=== PATIENT | male | born 1995 | race Caucasian/White ===

== ENCOUNTER 2020-07-17 08:36 | Day surgery (SDC) | payer OTHER, SELFPAY ==
[2020-07-17] VITALS (7 sets, daily range): BP systolic 120–132; BP diastolic 75–91; PULSE 65–83; RESP 16–18; TEMP 36.3–37.4; O2SAT 96–100; BMI 20.7
[2020-07-17] MEDS: Lactated Ringers 1,000 ML 100 ML IV (09:24)
--- NOTE | 2020-07-17 11:18 | PCM.HP.STD ---
Problem List (1) Urethral stricture Status: Acute History of Present Illness Date of Admission: 07/17/20 Chief Complaint: Urethral stricture The patient is a 25 year old male who is having a difficult slow flow on cystoscopy was found to have a dense urethral stricture short in length in the bulbar urethra. Past Medical History Allergies lactose Adverse Reaction (Verified 07/17/20 08:59) Upset Stomach duck eggs Adverse Reaction (Uncoded 07/17/20 08:59) Vomiting turkey eggs Adverse Reaction (Uncoded 07/17/20 08:59) Vomiting Home Medications: Ambulatory Orders Medication Instructions Recorded NK 07/10/20 Surgical History: no surgical history Smoking Status: Never smoker Tobacco Use: Non-smoker Review of Systems Constitutional: Denies: Chills, Fever, Weight Change HEENT: Denies: Head Aches, Sinus Congestion, Sinus Drainage Cardiovascular: Denies: Chest Pain, Palpitations Respiratory: Denies: Cough, Shortness of breath at rest, Sputum production Gastrointestinal: Denies: Abdominal Pain, Nausea, Vomiting Genitourinary: Denies: Dysuria Musculoskeletal: Denies: Joint Pain, Joint Tenderness Skin: Denies: Rash, Wounds Neurological: Denies: Numbness, Tingling, Focal weakness Psychiatric: Denies: Anxiety, Depression, Homicidal Ideations, Suicidal Ideations Hematologic/ Lymphatic: Denies: Easy Bruising, Easy Bleeding VTE Information - Inpt Only VTE Present on Admission: No - Physical Exam Vitals/I&O's: Vital Signs Temp Pulse Resp BP Pulse Ox 98.3 F 83 16 132/91 H 96 07/17/20 09:19 07/17/20 09:19 07/17/20 09:19 07/17/20 09:19 07/17/20 09:19 Oxygen Delivery Method Room Air Weight: 73.4 kg Body Mass Index (BMI) 20.7 General: Alert, Oriented x3, Cooperative HEENT: Atraumatic, PERRLA, EOMI, Normocephalic Neck: Supple, No JVD, Negative Carotid Bruits Lungs: Clear to auscultation, Normal air movement Cardiovascular: Regular rate, No murmurs Abdomen: Bowel Sounds Present, Soft, Non Tender Extremities: No edema, Capillary Refill Less than 3 Seconds Skin: No rashes, No breakdown Musculoskeletal: No Tenderness to Palpation of Joints or Extremities Neurological: Cranial nerves II-XII grossly intact Psych/Mental Status: Normal Affect, Appropriate Microbiology Past 72 Hours 07/16/20 08:45 Interface Orders SARS-CoV-2 Antigen (Rapid) - Final Current Medications Lactated Ringer's () 1,000 mls @ 100 mls/hr IV .Q10H ANGELA Last Admin: 07/17/20 09:24 Dose: 100 mls/hr Documented by: Assessment/Plan All Active Problems Urethral stricture (Acute) 25-year-old male with urethral stricture plan to proceed with a DVIU and Grimaldo placement.
--- NOTE | 2020-07-17 11:20 | DCINST_ITS ---
Discharge Diet: Light diet - advance as tolerated Discharge Activity: Return to Normal Activity Call your doctor if your incision/area has: Continuous Slow Oozing, Sudden Increased Bleeding Call your doctor if you observe: Fever of 101 or Higher Suture Line Care: Avoid Pulling/Pushing, Avoid Pinching/Bending Catheter: Grimaldo to leg bag, Grimaldo to large bag Drain: Elton Allergies/Adverse Reactions: Allergies lactose Adverse Reaction (Verified 07/17/20 08:59) Upset Stomach duck eggs Adverse Reaction (Uncoded 07/17/20 08:59) Vomiting turkey eggs Adverse Reaction (Uncoded 07/17/20 08:59) Vomiting Medications to take at Discharge Ciprofloxacin [Cipro] 500 mg PO BID #14 tab 07/17/20 Hydrocodone Bitart/Apap 5-325 [Fernley 5MG-325MG] 1 tablet PO Q4H PRN PRN 7 Days #10 tablet 07/17/20 The following prescriptions were given: Ciprofloxacin [Cipro] 500 mg PO BID #14 tab Transmission Status: Pending to [facility] Hydrocodone Bitart/Apap 5-325 [Fernley 5MG-325MG] 1 tablet PO Q4H PRN PRN 7 Days #10 tablet PRN Reason: Pain Transmission Status: Sent to [facility] Primary Care Physician: Care Physician,No Primary [Primary Care Provider] - Test Results: Test results from this visit will be discussed in further detail at your follow- up appointment, if applicable. Please Follow Up With: Artur Nelson MD When: in 2 weeks, please call to make an appointment.
[2020-07-17] MEDS: Cefazolin 2 GM in 0.9% Normal Saline 100 ML IV (12:53)
--- NOTE | 2020-07-17 13:08 | OP.PCM_ITS ---
Problem List (1) Urethral stricture Status: Acute Qualifiers: Urethral stricture type: other stricture Urethral stricture sex-location: male urethra-bulbous Qualified Code(s): N35.812 - Other urethral bulbous stricture, male Report of Operation Date of Procedure: 07/17/20 Pre-Operative Diagnosis: Dense bulbar urethral stricture Post-Operative Diagnosis: Same Surgery/Procedure Performed:: Cystoscopy and DVIU Description of Surgical Findings:: Patient was seen in the preoperative area and we discussed the surgery today. The patient has a urethral stricture in the mid urethra and working to proceed with a direct vision internal urethrotomy. Patient understands that it is possible that the scar tissue may come back and that the success rate of this procedures in the long-term is about 60 to 70%. We talked about the possibility of bleeding or infection from the procedure. The patient also understands that a catheter will be necessary after the procedure for about 10 days depending on the situation. After long discussion with the patient in preoperative area describing the procedure and what the patient's expect afterwards, the patient's questions were addressed and working to proceed with the surgery, the consent form was signed. The patient was taken back to the operating room after induction of anesthesia was placed in dorsolithotomy position. The genitals and urethra are prepped and draped in the usual sterile fashion. Then using a DVIU set the meatus was gently dilated from 18-20 Japanese. Then went into the urethra with a urethrotome and identified the pinpoint stricture dense stricture in the Bulbar urethra lesss 2cm in length. A 0.038 Glidewire was used to passed through the stricture to ensure access to the bladder and the prostate. The Glidewire was secured to the drapes. Then using a cold knife the knife was deployed from the urethrotome and then at the 12 o'clock position the scar tissue was cut until the stricture was cut open completely. I was then able to navigate the scope through the scar tissue without any resistance. Then after this I was able to navigate past the dense scar tissue into the bulbar urethra through the sphincter and passed the prostate. Inside the bladder the bladder and prostate was inspected the trigone was normal the left and right ureter orifice normal the prostate was normal. I then pulled out the urethrotome and then a well-lubricated 18 Japanese catheter was advanced into the bladder with clear return of urine. 10 cc were put into the balloon and the catheter was secured to the leg bag. Type of Anesthesia:: General Drains: 18 fr vazquez - Admit VTE Documentation VTE Present on Admission: No VTE Mechan Device Prophylaxis: SCD's
== END 2020-07-17 15:24 | disposition home or self-care (01) ==
LOC: SDC 08:45 → AC 08:48
PROVIDERS: Referring Provider Urology; Visit Provider Urology
PROC: 0T7D8ZZ Dilation of Urethra, Via Natural or Artificial Opening Endoscopic (ICD-10-PCS; CPT 52276; principal; 2020-07-17 11:45)
DX: N35.912 Unspecified bulbous urethral stricture, male (principal)
CPT/HCPCS: 00910; 52276; 87426; C9803; J7120; C1769; J2405

== ENCOUNTER 2020-09-27 16:24 | Outpatient (RCR) | payer OTHER, SELFPAY ==
[2020-07-17 09:19] VITALS: BMI 20.7
== END 2020-12-03 23:59 ==
LOC: IMMUN 16:24
PROVIDERS: Visit Provider Family Medicine
DX: Z23 Encounter for immunization (principal)
CPT/HCPCS: 0001A; 0002A; 91300

== ENCOUNTER → 2022-09-22 | Outpatient (CLI) | payer OTHER, SELFPAY ==
[2022-09-22 18:11] LABS: Absolute Lymphocyte Count 1.87 X10^3/uL (0.83-4.51); Absolute Neutrophil Count 1.8 X10^3/uL (2.0-7.7); Basophil# 0.04 X10^3/uL; Eosinophil# 0.06 X10^3/uL; Eosinophils% 1.5 % (0-5); Hematocrit 42.1 % (40-54); Hemoglobin 14.2 g/dL (13.0-16.5); Lymphocyte # 1.87 X10^3/ul (0.83-4.51); Lymphocyte % 45.9 % (19-41); Mean Corp Hgb Conc 33.7 g/dL (32-36); Mean Corpuscular Hgb 30.8 pg (27.0-32.0); Mean Corpuscular Volume 91.3 fL (80-94); Mean Platelet Vol. 9.3 fl (6.2-12.0); Monocyte# 0.33 X10^3/uL; Monocyte% 8.1 % (0-10); NRBC Flagged by Analyzer 0 % (0-5); Neutrophil # 1.76 X10^3/uL (2.7-7.7); Neutrophil % 43.3 % (47-70); Platelet Count 263 K/mm3 (150-450); RBC Distribution Width CV 11.4 % (11.6-14.6); RBC Distribution Width SD 38.2 fl (35.1-43.9); Red Blood Count 4.61 M/mm3 (4.6-6.2); White Blood Count 4.1 K/mm3 (4.4-11.0)
[2022-09-22 18:25] LABS: ALB/GLOB Ratio 1.1 RATIO (0.9-2.4); AST(SGOT) 36 U/L (15-37); Alanine Aminotransfer ALT/SGPT 30 U/L (16-61); Albumin, Serum 4.2 g/dL (3.2-5.0); Alkaline Phosphatase 79 U/L (45-117); Anion Gap 5 (5-15); BUN 6 mg/dL (7-18); BUN/Creat Ratio 6.3 RATIO (10-20); Calcium,Total 9.2 mg/dL (8.5-10.1); Chloride 106 mmol/L (98-107); Creatinine, Serum 0.95 mg/dL (0.70-1.30); EST Glomerular Filtration Rate 99 mL/min (>60); Est Glom Filt Rate - Afr Amer 120 mL/min (>60); Globulin 3.8 g/dL (2.2-4.2); Glucose 94 mg/dL (74-106); Potassium 3.7 mmol/L (3.5-5.1); Sodium Level 139 mmol/L (136-145); Thyroid Stim Hormone (TSH) 1.17 uIU/mL (0.358-3.74)
== END | disposition home or self-care (01) ==
LOC: MTLAB 15:28
PROVIDERS: PCP Family Medicine; Referring Provider Family Medicine; Visit Provider Family Medicine
DX: R10.9 Unspecified abdominal pain (principal)
CPT/HCPCS: 36415; 80053; 84443; 85025

== ENCOUNTER → 2022-09-25 | Outpatient (CLI) | payer OTHER, SELFPAY ==
--- NOTE | 2022-09-25 17:50 | US_ITS ---
EXAM: US SOFT TISSUES HEAD AND NECK, THYROID CLINICAL INDICATION: NODULE TECHNIQUE: Greyscale and color doppler imaging was performed of the thyroid gland. This report was created using [employer] report [employer] [place] technology. COMPARISON: None. FINDINGS: LEFT THYROID LOBE: 5.4 x 1.5 x 1.8 cm, with homogeneous echotexture and no nodules identified. RIGHT THYROID LOBE: 6.2 x 1.5 x 1.9 cm, with homogeneous echotexture and no nodules identified. ISTHMUS: Unremarkable. No thyroid nodules are present. US/Thyroid IMPRESSION: Normal sonographic appearance of the thyroid gland with no nodules identified. Electronically Signed: Sahil Daigle MD at 3:29 EDT ,
== END | disposition home or self-care (01) ==
LOC: US 17:47
PROVIDERS: PCP Family Medicine; Visit Provider Family Medicine
DX: E04.1 Nontoxic single thyroid nodule (principal)
CPT/HCPCS: 76536

== ENCOUNTER → 2023-02-24 | Outpatient (CLI) | payer OTHER, SELFPAY ==
--- NOTE | 2023-02-24 16:30 | RAD_ITS ---
EXAM: XR ABDOMEN, 2 VIEWS CLINICAL INDICATION: ABD BLOATING,CONSTIPATION TECHNIQUE: Frontal view of the abdomen/pelvis with upright view of the abdomen. COMPARISON: No relevant prior studies available. FINDINGS: LOWER THORAX: No acute pathology. INTRAPERITONEAL SPACE: No free air. GASTROINTESTINAL TRACT: There is moderate stool seen within the proximal and distal colon which may represent early constipation. Non-obstructive. No bowel or stomach distention. ORGANS: Unremarkable as visualized. No organomegaly. No abnormal calcifications. BONES/JOINTS: No acute pathology. SOFT TISSUES: No acute pathology. RAD/Abd Inc Decub and/or Erect IMPRESSION: Moderate stool within the ascending and sigmoid colon which may represent early constipation. Electronically Signed: Nadir Lyman MD at 19:55 EDT ,
== END | disposition home or self-care (01) ==
PROVIDERS: PCP Family Medicine; Referring Provider Internal Medicine Gastroenterology; Visit Provider Internal Medicine Gastroenterology
DX: R14.0 Abdominal distension (gaseous) (principal); K59.00 Constipation, unspecified
CPT/HCPCS: 74019

== ENCOUNTER 2023-06-11 16:27 | Emergency (ER) | payer OTHER, SELFPAY ==
[2023-06-11 16:28] VITALS: BP 148/97; PULSE 98; RESP 14; TEMP 36.8; O2SAT 99; BMI 44.1
--- NOTE | 2023-06-11 16:38 | EX.ED.UPPERE ---
HPI History of Present Illness Chief Complaint: Laceration Detail of Chief Complaint: Left hand laceration Informant: patient Narrative Narrative: Patient presents to the emergency department with complaint of lacerating his left hand. Patient states that he was working with a woodworking tool and kind of pushed towards his left hand and lacerated the webspace between his thumb and index finger. Patient up-to-date on tetanus. He is right-hand dominant. PFSH PFSH Home Medications NK 06/11/23 [History Last Taken Unknown] Allergy/AdvReac Type Severity Reaction Status Date / Time egg AdvReac Vomiting Verified 06/11/23 16:28 lactose AdvReac Upset Verified 06/11/23 16:28 Stomach Social History Smoking Status: Never smoker ROS ROS ED Review of Systems ROS Unobtainable: other Constitutional Constitutional ED: Reports lethargy; Denies chills, fever(s), sweats or weight loss Eyes Eyes: Denies blurry vision, change in vision or diplopia ENT ENT ED: Denies rhinorrhea or sore throat Cardiovascular Cardiovascular: Denies chest pain, orthopnea or racing heartbeat Respiratory/Chest Respiratory/Chest: Denies cough, dyspnea, dyspnea on exertion, orthopnea or sputum Gastrointestinal Gastrointestinal: Denies abdominal pain, diarrhea, nausea or vomiting Genitourinary Genitourinary ED: Denies dysuria, hematuria or urinary frequency Musculoskeletal Musculoskeletal: Reports other Details: Left hand laceration ; Denies arthralgias, back pain, myalgias or neck pain Integumentary Denies abscess, Abrasions or rash Neurologic Neurologic: Denies headache(s) or weakness Psychiatric Psychiatric: Denies anxiety, depression or suicidal thoughts Endocrine Endocrinology: Denies polydipsia, polyphagia or polyuria Hematologic/Lymphatic Hematologic/Lymphatic: Denies easy bleeding, easy bruising or lymphadenopathy Allergic/Immunologic Allergic/Immunologic ED: Denies mouth swelling, tongue swelling or urticaria EXAM Physical Exam Const Vital Signs: 06/11/23 16:28 Temperature 98.3 F Temperature Source Temporal Pulse Rate 98 Respiratory Rate 14 Blood Pressure 148/97 H Blood Pressure Mean 114 Pulse Ox 99 Oxygen Delivery Method Room Air Positive well nourished and well developed General Appearance ED: well developed and NAD HEENT Reports TM's clear and moist mucous membranes normocephalic and atraumatic; Negative for trauma or tenderness Tympanic Membrane ED: Yes TM's clear Eyes PERRL and EOMs intact bilaterally General Eye ED: Negative for pale conjunctiva or scleral icterus Neck no lymphadenopathy, supple and no JVD General: Negative for tenderness Chest Wall inspection of chest normal and palpation of chest normal Chest: Negative for tenderness Resp normal respiratory effort and clear to auscultation bilaterally Effort and Inspection: Negative for respiratory distress or pain with movement Auscultation: Negative for rhonchi, wheezes or diminished lung sounds Cardio regular rate, regular rhythm, S1 normal heart sound, S2 normal heart sound and no murmurs Peripheral Pulses: pulses 2+ throughout GI normal to inspection, nondistended, normoactive bowel sounds, soft to palpation, non-tender, non-distended and no masses Back/Spine no CVA tenderness and no thoracic nor lumbar tenderness Extremity Extremity Narrative: -Patient has a 2 cm laceration in the webspace between his thumb and index finger. He has normal range of motion of all digits. Normal sensation. Normal cap refill and strength. General Extremety ED: Negative for edema General Extremity: Negative for edema Neuro oriented x3, CN's II-XII intact bilaterally, no sensory deficits noted and gait normal Sensorium / Orientation: awake, alert, oriented to person, oriented to place and oriented to time Motor Exam: strength 5/5 throughout and strength abnormal Psych mental status grossly normal Skin no rashes or lesions noted and no wounds MDM MDM MDM Narrative Medical decision making narrative: Patient presents with laceration to his left hand. Recommended suture repair. He was working with wood and this was the first pass to use with a tool did not think it was grossly contaminated. On exam I do not appreciate any foreign bodies within the wound. Please see procedure note for wound repair. Patient advised to follow-up with primary care physician in 10 days for suture removal. Patient to return if increasing pain, redness, swelling, purulent drainage, or condition should worsen anyway. Procedures Lacerations Left hand laceration: Length: 0.79 in Depth: Muscle Prep: Sterile Conditions and Shure-Clens Laceration repair: Irrigated, Lidocaine and Local Irrigated (ml): 100 Number of Sutures/Cony: 3 Suture Information: Ethilon, Simple and 4-0 Discharge Plan Triage Chief Complaint: Laceration ED Provider: Liseth Stover Dx/Rx/DC Orders Clinical Impression: Laceration of hand, left Instructions: ED Laceration, Hand: All Closures Prescriptions: No Action NK Primary Care Provider: Kell Lane Referrals: Kell Lane, DO [Primary Care Provider] - 10 Day for suture removal Disposition Disposition: Home, Self Care Discharge Date/Time: 06/11/23 17:19
== END 2023-06-11 17:19 | disposition home or self-care (01) ==
LOC: ED 17:06
PROVIDERS: Emergency Provider Emergency Medicine; PCP Family Medicine; Visit Provider Emergency Medicine
DX: S61.412A Laceration without foreign body of left hand, initial encounter (principal); W31.2XXA Contact with powered woodworking and forming machines, initial encounter
CPT/HCPCS: 12001; 99284

== ENCOUNTER → 2024-12-14 | Outpatient (CLI) | payer OTHER, SELFPAY ==
[2024-12-14 10:24] LABS: Absolute Lymphocyte Count 2.32 X10^3/uL (0.83-4.51); Absolute Neutrophil Count 1.7 X10^3/uL (2.0-7.7); Basophil# 0.06 X10^3/uL; Basophil% 1.3 % (0-1); Eosinophil# 0.09 X10^3/uL; Hematocrit 41.5 % (40-54); Lymphocyte # 2.32 X10^3/ul (0.83-4.51); Lymphocyte % 51.8 % (19-41); Mean Corp Hgb Conc 33.7 g/dL (32-36); Mean Corpuscular Hgb 30.3 pg (27.0-32.0); Mean Corpuscular Volume 89.8 fL (80-94); Mean Platelet Vol. 9.5 fl (6.2-12.0); Monocyte# 0.36 X10^3/uL; NRBC Flagged by Analyzer 0 % (0-5); Neutrophil # 1.65 X10^3/uL (2.7-7.7); Neutrophil % 36.9 % (47-70); Platelet Count 234 K/mm3 (150-450); RBC Distribution Width CV 11.9 % (11.6-14.6); RBC Distribution Width SD 38.8 fl (35.1-43.9); Red Blood Count 4.62 M/mm3 (4.6-6.2); White Blood Count 4.5 K/mm3 (4.4-11.0)
[2024-12-14 10:42] LABS: ALB/GLOB Ratio 1.4 RATIO (0.9-2.4); AST(SGOT) 21 U/L (<=37); Alanine Aminotransfer ALT/SGPT 19 U/L (<=46); Albumin, Serum 4.4 g/dL (3.5-5.0); Alkaline Phosphatase 84 U/L (40-129); Anion Gap 10 (5-15); BUN 8 mg/dL (4-19); BUN/Creat Ratio 7.5 RATIO (10-20); Calcium,Total 9.3 mg/dL (7.6-11.0); Carbon Dioxide 24.8 mmol/L (21.0-32.0); Chloride 104 mmol/L (98-108); Cholesterol 193 mg/dL (<=200); Creatinine, Serum 1.12 mg/dL (0.70-1.20); EST Glomerular Filtration Rate 90 (>60); Globulin 3.2 g/dL (2.2-4.2); Glucose 97 mg/dL (70-99); High Density Lipoprotein 47 mg/dL; Low Density Lipoprotein Calc. 129 mg/dL; Potassium 4.2 mmol/L (3.3-5.1); Protein, Total 7.6 g/dL (5.9-8.4); Sodium Level 138 mmol/L (133-145); Total Bilirubin 0.57 mg/dL (0.00-1.30); Triglycerides 86 mg/dL; Very Low Density Lipoprotein 17 mg/dL (5-40); cholesterol:hdl ratio screen 4.12
== END | disposition home or self-care (01) ==
PROVIDERS: PCP Family Medicine; Referring Provider Family Medicine; Visit Provider Family Medicine
DX: Z13.1 Encounter for screening for diabetes mellitus (principal); Z13.220 Encounter for screening for lipoid disorders
CPT/HCPCS: 36415; 80053; 80061; 85025

== ENCOUNTER 2025-03-17 18:10 | Emergency (ER) | payer OTHER, SELFPAY ==
[2025-03-17 18:11] VITALS: BP 159/109; PULSE 75; RESP 16; TEMP 36.7; O2SAT 100; BMI 25.5
[2025-03-17 18:34] VITALS: O2SAT 100
--- NOTE | 2025-03-17 18:34 | RAD_ITS ---
PROCEDURE: CHEST 1 VIEW (PORTABLE) 03/17/2025 REASON FOR EXAM: CHEST PAIN TECHNIQUE: Frontal view of the chest. COMPARISON: None FINDINGS: Lungs: The lungs are symmetrically expanded. Lung volumes are pronounced, most likely secondary to vigorous inspiratory effort. There is no consolidation. There is no peribronchial thickening. There is no pulmonary vascular redistribution. Pleura: No significant pleural effusion seen. There is no evidence of pneumothorax. Mediastinum: There is no mediastinal widening or mediastinal shift. Heart: The cardiac silhouette is not enlarged. Laxmi: The pulmonary laxmi are not enlarged or retracted. Osseous: No acute fracture is seen. RAD/Chest 1 View (Portable) IMPRESSION: No radiographic evidence of an acute abnormality in the chest. Findings discussed above in detail. Reading Location: [id number]
--- NOTE | 2025-03-17 18:34 | EKG12_ITS ---
Test Reason : DYSRHYTHMIA Blood Pressure : */* mmHG Vent. Rate : 73 BPM Atrial Rate : 73 BPM P-R Int : 172 ms QRS Dur : 90 ms QT Int : 378 ms P-R-T Axes : 68 40 36 degrees QTcB Int : 416 ms Normal sinus rhythm Normal ECG Confirmed by HEMA FISHER, MANDY ([id number]), greeting card editor LIVIER BLUE ([id number]) on 03/19/2025 8:29:21 AM Referred By: Confirmed By: MANDY GARRIDO MD
--- OUTSIDE RECORDS SUMMARY | 2025-03-17 18:51 | XMS RPT_ITS | CCD ---
Author Organization [facility] Care Team Providers Care Disk Recordist Name Role Phone JAYJAY GRAY Admitting Unavailable JAYJAY GRAY Attending Unavailable BUCIO, NIDIA A Referring Unavailable JAYJAY GRAY M Primary Care Unavailable BUCIO, NIDIA A Consulting Unavailable PROVIDER, UNKNOWN Consulting Unavailable PROVIDER, UNKNOWN Consulting Unavailable PROVIDER, UNKNOWN Consulting Unavailable BUCIO, NIDIA A Referring Unavailable ISRA TARIQ Admitting Unavailable TARIQISRA Monsalve Attending Unavailable ISRA TARIQ Primary Care Unavailable BUCIO, NIDIA A Consulting Unavailable PROVIDER, UNKNOWN Consulting Unavailable PROVIDER, UNKNOWN Consulting Unavailable PROVIDER, UNKNOWN Consulting Unavailable FÉLIX BEARD Admitting Unavailable FÉLIX BEARD Attending Unavailable FÉLIX BEARD Primary Care Unavailable BUCIO, NIDIA A Consulting Unavailable PROVIDER, UNKNOWN Consulting Unavailable PROVIDER, UNKNOWN Consulting Unavailable PROVIDER, UNKNOWN Consulting Unavailable FÉLIX BEARD Admitting Unavailable FÉLIX BEARD Attending Unavailable FÉLIX BEARD Primary Care Unavailable BUCIO, NIDIA A Consulting Unavailable PROVIDER, UNKNOWN Consulting Unavailable PROVIDER, UNKNOWN Consulting Unavailable PROVIDER, UNKNOWN Consulting Unavailable Italo Kenney MD Primary Care Provider [phone] Italo Kenney MD Attending Provider [phone] Italo Kenney MD Referring Provider [phone] Italo Kenney Referring Unavailable Italo Kenney Attending Unavailable Italo Kenney Primary Care Unavailable Allergies Allergy Classification Reported Allergen(s) Allergy Type Date of Onset Reaction(s) Facility (5 sources) egg extract Drug Allergy 01-12-2022 Vomiting [facility] Comment on above: DUCK AND TURKEY EGGS ONLY (5 sources) Lactose Drug Allergy 07-17-2020 Upset Stomach [facility] (1 source) egg extract Drug Allergy 06-11-2023 [facility] Repository (1 source) Lactose Drug Allergy 06-11-2023 [facility] Repository Medications Current Medications Medication Drug Class(es) Dates Sig (Normalized) Sig (Original) [place] (Nk) (2 sources) Start: 06-11-2023 [place] (Nk) A ctive June 11, 2023 1:00am Start: 06-11-2023 [place] (Nk) A ctive June 11, 2023 12:00am Completed/Discontinued Medications Medication Drug Class(es) Dates Sig (Normalized) Sig (Original) acetaminophen 325 mg / HYDROcodone bitartrate 5 mg oral tablet (5 sources) Opioid Agonist Start: 07-17-2020 End: 07-24-2020 Hydrocodone-Acetami nophen 1 TABLET tablet Discontinued 1 {tbl} PO EVERY 4 HOURS NEEDED as needed for Pain 10 7 0 July 17, 2020 July 23, 2020 1:00am July 24, 2020 1:03am Contusion of urethra, initial encounter Start: 07-17-2020 End: 07-24-2020 take 1 tablet by mouth every four hours as needed Hydrocodone-Acetaminophen Discontinued 1 TABLET PO EVERY 4 HOURS NEEDED 10 7 July 17, 2020 July 24, 2020 12:03am ciprofloxacin 500 mg oral tablet (5 sources) Quinolone Antimicrobial Start: 07-17-2020 End: 06-11-2023 take 1 tablet by mouth twice daily Ciprofloxacin Hcl 500 MG tablet Discontinued 500 mg PO TWICE A DAY 14 0 July 17, 2020 1:00am June 11, 2023 5:41pm Problems Problem Classification Problem Date Documented Da te Episodic/Chronic External cause codes: Natural/environment (1 source) Bitten by dog, initial encounter; Translations: [Bitten by dog, initial encounter] Onset: 01-29-2019 Open wounds of extremities (8 sources) Laceration without foreign body, left lower leg, initial encounter; Translations: [Open bite of left hand, initial encounter] Onset: 01-29-2019 06-11-2023 Episodic Open wounds of extremities (1 source) Open bite of right hand, initial encounter; Translations: [Open bite of right hand, initial encounter] Onset: 01-29-2019 Episodic Other diseases of bladder and urethra (5 sources) Urethral stricture; Translations: [Unspecified urethral stricture, male, unspecified site] 07-17-2020 Episodic Other screening for suspected conditions (not mental disorders or infectious disease) (1 source) Encounter for screening for diabetes mellitus; Translations: [Encounter for screening for diabetes mellitus] Onset: 12-22-2024 Episodic Results Test Name Value Interpretation Reference Range Facility Absolute lymphocyte countOrd ered By: Italo Kenney on 12-14-2024 Lymphocytes Auto (Unsp spec) [#/Vol] 2.32 10*3/uL 0.83-4.51 [facility] Absolute neutrophil countOrd ered By: Italo Kenney on 12-14-2024 Neutrophils (Bld) [#/Vol] 1.7 10*3/uL Low 2.0-7.7 [facility] Anion gap in Serum or Plasma Ordered By: Italo Thomaske on 12-14-2024 Anion gap [Moles/Vol] 10 mmol/L 5-15 [facility] Automated lymphocyte count a s percentage of total leukocytesOrdered By: Italo Kenney on 12-14-2024 Lymphocytes/100 WBC Auto (Unsp spec) 51.8 % High 19-41 [facility] BUN/creatinine ratioOrdered By: [facility] on 12-14-2024 Urea nitrogen/Creatinine [Mass ratio] 7.5 mg/mg Low 10-20 [facility] Basophil percentageOrdered B y: Italo Kenney on 12-14-2024 Basophils/100 WBC (Bld) 1.3 % High 0-1 [facility] Bilirubin, totalOrdered By: Italo Kenney on 12-14-2024 Bilirubin [Mass/Vol] 0.57 mg/dL 0.00-1.30 [facility] CBC W/Diff, Automatedon 11-26 Absolute Lymph 2.32 X10 3/uL Normal 0.83-4.51 [facility] Comment on above: Performed By: #### L 500.4100, L500.4050, L100.0100 #### [facility] [address] [place], [address] Absolute Neut 1.7 X10 3/uL Low 2.0-7.7 [facility] Comment on above: Performed By: #### L 500.4100, L500.4050, L100.0100 #### [facility] [address] [place], [address] Basophils/100 WBC (Bld) 1.3 % High 0-1 [facility] Comment on above: Performed By: #### L 500.4100, L500.4050, L100.0100 #### [facility] [address] [place], [address] Eosinophils/100 WBC (Bld) 2.0 % Normal 0-5 [facility] Comment on above: Performed By: #### L 500.4100, L500.4050, L100.0100 #### [facility] [address] [place], [address] Erythrocyte distribution width (RBC) [Ratio] 11.9 % Normal 11.6-14.6 [facility] Comment on above: Performed By: #### L 500.4100, L500.4050, L100.0100 #### [facility] [address] [place], [address] Hematocrit (Bld) [Volume fraction] 41.5 % Normal 40-54 [facility] Comment on above: Performed By: #### L 500.4100, L500.4050, L100.0100 #### [facility] [address] [place], [address] Hemoglobin (Bld) [Mass/Vol] 14.0 g/dL Normal 13.0-16.5 [facility] Comment on above: Performed By: #### L 500.4100, L500.4050, L100.0100 #### [facility] [address] [place], [address] IG% 0.000 Normal 0.0-0.9 [facility] Comment on above: Result Comment: IG% - Immature Granulocytes (promyelocytes, myelocytes and metamyelocytes) > 1% indicates that a LEFT SHIFT is Present. Performed By: #### L 500.4100, L500.4050, L100.0100 #### [facility] [address] [place], [address] Lymphocytes/100 WBC (Bld) 51.8 % High 19-41 [facility] Comment on above: Performed By: #### L 500.4100, L500.4050, L100.0100 #### [facility] [address] [place], [address] MCH (RBC) [Entitic mass] 30.3 pg Normal 27.0-32.0 [facility] Comment on above: Performed By: #### L 500.4100, L500.4050, L100.0100 #### [facility] [address] [place], [address] MCHC (RBC) [Mass/Vol] 33.7 g/dL Normal 32-36 [facility] Comment on above: Performed By: #### L 500.4100, L500.4050, L100.0100 #### [facility] [address] [place], [address] MCV (RBC) [Entitic vol] 89.8 fL Normal 80-94 [facility] Comment on above: Performed By: #### L 500.4100, L500.4050, L100.0100 #### [facility] [address] [place], [address] Monocytes/100 WBC (Bld) 8.0 % Normal 0-10 [facility] Comment on above: Performed By: #### L 500.4100, L500.4050, L100.0100 #### [facility] [address] [place], [address] Neutrophils/100 WBC (Bld) 36.9 % Low 47-70 [facility] Comment on above: Performed By: #### L 500.4100, L500.4050, L100.0100 #### [facility] [address] [place], [address] Nucleated RBC (Bld) [#/Vol] 0 10*3/uL Normal 0-5 [facility] Comment on above: Performed By: #### L 500.4100, L500.4050, L100.0100 #### [facility] [address] [place], [address] Platelet mean volume (Bld) [Entitic vol] 9.5 fL Normal 6.2-12.0 [facility] Comment on above: Performed By: #### L 500.4100, L500.4050, L100.0100 #### [facility] [address] [place], [address] Platelets (Bld) [#/Vol] 234 10*3/uL Normal 150-450 [facility] Comment on above: Performed By: #### L 500.4100, L500.4050, L100.0100 #### [facility] [address] [place], [address] RBC (Bld) [#/Vol] 4.62 10*6/uL Normal 4.6-6.2 [facility] Comment on above: Performed By: #### L 500.4100, L500.4050, L100.0100 #### [facility] [address] [place], [address] RDW SD 38.8 fl Normal 35.1-43.9 [facility] Comment on above: Performed By: #### L 500.4100, L500.4050, L100.0100 #### [facility] [address] [place], [address] WBC (Bld) [#/Vol] 4.5 10*3/uL Normal 4.4-11.0 [facility] Comment on above: Performed By: #### L 500.4100, L500.4050, L100.0100 #### [facility] [address] [place], [address] Calculated very low density lipoprotein (VLDL) cholesterol measurementOrdered By: Italo Kenney on 12-14-2024 Calculated very low density lipoprotein (VLDL) cholesterol measurement 17 mg/dL 5-40 [facility] Carbon dioxide, total [Moles /volume] in Central venous bloodOrdered By: Italo Kenney on 12-14-2024 CO2 [Moles/Vol] 24.8 mmol/L 21.0-32.0 [facility] Chloride assayOrdered By: Lisbet Kenney on 12-14-2024 Chloride [Moles/Vol] 104 mmol/L 98-108 [facility] Comprehensive Metabolic Prof ilon 12-14-2024 Albumin [Mass/Vol] 4.4 g/dL Normal 3.5-5.0 [facility] Comment on above: Performed By: #### L 500.4100, L500.4050, L100.0100 #### [facility] [address] [place], [address] Albumin/Globulin [Mass ratio] 1.4 {ratio} Normal 0.9-2.4 [facility] Comment on above: Performed By: #### L 500.4100, L500.4050, L100.0100 #### [facility] [address] [place], [address] ALK PHOS 84 U/L Normal 40-129 [facility] Comment on above: Performed By: #### L 500.4100, L500.4050, L100.0100 #### [facility] [address] [place], [address] ALT [Catalytic activity/Vol] 19 U/L Normal <=46 [facility] Comment on above: Performed By: #### L 500.4100, L500.4050, L100.0100 #### [facility] [address] [place], [address] AST [Catalytic activity/Vol] 21 U/L Normal <=37 [facility] Comment on above: Performed By: #### L 500.4100, L500.4050, L100.0100 #### [facility] [address] [place], [address] Bilirubin [Mass/Vol] 0.57 mg/dL Normal 0.00-1.30 [facility] Comment on above: Performed By: #### L 500.4100, L500.4050, L100.0100 #### [facility] [address] [place], [address] BUN/CRE 7.5 RATIO Low 10-20 [facility] Comment on above: Performed By: #### L 500.4100, L500.4050, L100.0100 #### [facility] [address] [place], [address] Calcium [Mass/Vol] 9.3 mg/dL Normal 7.6-11.0 [facility] Comment on above: Performed By: #### L 500.4100, L500.4050, L100.0100 #### [facility] [address] [place], [address] Chloride [Moles/Vol] 104 mmol/L Normal 98-108 [facility] Comment on above: Performed By: #### L 500.4100, L500.4050, L100.0100 #### [facility] [address] [place], [address] CO2 [Moles/Vol] 24.8 mmol/L Normal 21.0-32.0 [facility] Comment on above: Performed By: #### L 500.4100, L500.4050, L100.0100 #### [facility] [address] [place], [address] Creatinine [Mass/Vol] 1.12 mg/dL Normal 0.70-1.20 [facility] Comment on above: Performed By: #### L 500.4100, L500.4050, L100.0100 #### [facility] [address] [place], [address] GAP 10 Normal 5-15 [facility] Comment on above: Performed By: #### L 500.4100, L500.4050, L100.0100 #### [facility] [address] [place], [address] GFR/1.73 sq M.predicted among non-blacks MDRD (S/P/Bld) [Vol rate/Area] 90 mL/min/{1.73_m2} Normal >60 [facility] Comment on above: Result Comment: mL/m in/1.73m2 CKD-EPI Creatinine Equation (2020) Performed By: #### L 500.4100, L500.4050, L100.0100 #### [facility] [address] [place], [address] Globulin (S) [Mass/Vol] 3.2 g/dL Normal 2.2-4.2 [facility] Comment on above: Performed By: #### L 500.4100, L500.4050, L100.0100 #### [facility] [address] [place], [address] Glucose [Mass/Vol] 97 mg/dL Normal 70-99 [facility] Comment on above: Performed By: #### L 500.4100, L500.4050, L100.0100 #### [facility] [address] [place], [address] Potassium [Moles/Vol] 4.2 mmol/L Normal 3.3-5.1 [facility] Comment on above: Performed By: #### L 500.4100, L500.4050, L100.0100 #### [facility] [address] [place], [address] Sodium [Moles/Vol] 138 mmol/L Normal 133-145 [facility] Comment on above: Performed By: #### L 500.4100, L500.4050, L100.0100 #### [facility] [address] [place], [address] T PROT 7.6 g/dL Normal 5.9-8.4 [facility] Comment on above: Performed By: #### L 500.4100, L500.4050, L100.0100 #### [facility] [address] [place], [address] Urea nitrogen [Mass/Vol] 8 mg/dL Normal 4-19 [facility] Comment on above: Performed By: #### L 500.4100, L500.4050, L100.0100 #### [facility] [address] [place], [address] Eosinophil percentageOrdered By: Italo Kenney on 12-14-2024 Eosinophils/100 WBC (Bld) 2.0 % 0-5 [facility] Erythrocyte distribution wid th ratioOrdered By: Italo Anne Marie on 12-14-2024 Erythrocyte distribution width (RBC) [Ratio] 11.9 % 11.6-14.6 [facility] Erythrocyte distribution wid th standard deviationOrdered By: [facility] on 12-14-2024 Erythrocyte distribution width (RBC) [Ratio] 38.8 fl 35.1-43.9 [facility] Glomerular filtration rate ( GFR) estimation/1.73 sq m using serum, plasma, or whole bOrdered By: [facility] on 12-14-2024 GFR/1.73 sq M.predicted among non-blacks MDRD (S/P/Bld) [Vol rate/Area] 90 mL/min/{1.73_m2} >60 [facility] Comment on above: mL/min/1.73m2 CKD-EP I Creatinine Equation (2020) Hematocrit Auto (Bld) [Volum e fraction]Ordered By: Italo Kenney on 12-14-2024 Hematocrit (Bld) [Volume fraction] 41.5 % 40-54 [facility] Hemoglobin measurementOrdere d By: Italo Thomaske on 12-14-2024 Hemoglobin (Bld) [Mass/Vol] 14.0 g/dL 13.0-16.5 [facility] Immature granulocytes/100 WB C Auto (Bld)Ordered By: Italo Thomaske on 12-14-2024 Immature granulocytes/100 WBC (Bld) 0.000 % 0.0-0.9 [facility] Comment on above: IG% - Immature Granu locytes (promyelocytes, myelocytes and metamyelocytes) > 1% indicates that a LEFT SHIFT is Present. LDL calc ser/plasOrdered By: [facility] on 12-14-2024 Cholesterol in LDL [Mass/Vol] 129 mg/dL [facility] Comment on above: Fvnurughpv=686-626 m g/dL & Higher Blbb=208 mg/dL or greater Laboratory - Chemistry and C hemistry - challengeOrdered By: [facility] on 12-14-2024 AST [Catalytic activity/Vol] 21 U/L <38 [facility] Lipid Profileon 12-14-2024 CHOL:HDL 4.12 Normal [facility] Comment on above: Performed By: #### L 500.4100, L500.4050, L100.0100 #### [facility] [address] [place], [address] Cholesterol [Mass/Vol] 193 mg/dL Normal <=200 [facility] Comment on above: Result Comment: Chol esterol level, Desirable <200 mg/dL Borderline high cholesterol 200-239 mg/dL High cholesterol >=240 mg/dL Recommendations of the NCEP Adult Treatment Panel for the following risk-cutoff thresholds for the [place] population. Performed By: #### L 500.4100, L500.4050, L100.0100 #### [facility] [address] [place], [address] Cholesterol in HDL [Mass/Vol] 47 mg/dL Normal [facility] Comment on above: Result Comment: Deepti onal Cholesterol Education Program (NCEP) guidelines: <40 mg/dL: Low HDL-cholesterol (major risk factor for CHD) >= 60 mg/dL: High HDL-cholesterol (negative risk factor for CHD) HDL-cholesterol is affected by a number of factors, e.g. smoking, exercise, hormones, sex and age. Performed By: #### L 500.4100, L500.4050, L100.0100 #### [facility] [address] [place], [address] Cholesterol in LDL [Mass/Vol] 129 mg/dL Normal [facility] Comment on above: Result Comment: Bord gcxkej=510-492 mg/dL Higher Vpbo=819 mg/dL or greater Performed By: #### L 500.4100, L500.4050, L100.0100 #### [facility] [address] [place], [address] Cholesterol in VLDL [Mass/Vol] 17 mg/dL Normal 5-40 [facility] Comment on above: Performed By: #### L 500.4100, L500.4050, L100.0100 #### [facility] [address] [place], [address] Triglyceride [Mass/Vol] 86 mg/dL Normal [facility] Comment on above: Result Comment: The drugs N-Acetylcysteine and Metamizole may falsely depress this assay. Normal range: <150 mg/dL Borderline High: 150-199 mg/dL High: 200-499 mg/dL Very High: >500 mg/dL Performed By: #### L 500.4100, L500.4050, L100.0100 #### [facility] [address] [place], [address] MCV (mean corpuscular volume ) determinationOrdered By: Italo Kenney on 12-14-2024 MCV (RBC) [Entitic vol] 89.8 fL 80-94 [facility] Mean corpuscular hemoglobin (MCH) determinationOrdered By: Italo Kenney on 12-14-2024 MCH (RBC) [Entitic mass] 30.3 pg 27.0-32.0 [facility] Mean corpuscular hemoglobin concentration (MCHC) determinationOrdered By: Italo Kenney on 12-14-2024 MCHC (RBC) [Mass/Vol] 33.7 g/dL 32-36 [facility] Mean platelet volume determi nationOrdered By: Italo Kenney on 12-14-2024 Platelet mean volume (Bld) [Entitic vol] 9.5 fL 6.2-12.0 [facility] Monocyte percentageOrdered B y: Italo Kenney on 12-14-2024 Monocytes/100 WBC (Bld) 8.0 % 0-10 [facility] Neutrophil percentageOrdered By: Italo Kenney on 12-14-2024 Neutrophils/100 WBC (Bld) 36.9 % Low 47-70 [facility] Nucleated red blood cell per centageOrdered By: Italo Kenney on 12-14-2024 Nucleated RBC/100 WBC (Bld) [Ratio] 0 % 0-5 [facility] Platelet countOrdered By: Lisbet Kenney on 12-14-2024 Platelets (Bld) [#/Vol] 234 10*3/uL 150-450 [facility] Potassium measurement (mass/ volume)Ordered By: Italo Kenney on 12-14-2024 Potassium (Unsp spec) [Mass/Vol] 4.2 mmol/L 3.3-5.1 [facility] RBC Auto (Bld) [#/Vol]Ordere d By: Italo Kenney on 12-14-2024 RBC (Bld) [#/Vol] 4.62 10*6/uL 4.6-6.2 [facility] Screening total cholesterol/ high density lipoprotein (HDL) cholesterol ratioOrdered By: Italo Kenney on 12-14-2024 Cholesterol.total/Cholest eladio in HDL [Mass ratio] 4.12 {ratio} [facility] Serum creatinine measurement (mass/volume)Ordered By: Italo Kenney on 12-14-2024 Creatinine [Mass/Vol] 1.12 mg/dL 0.70-1.20 [facility] Serum globulin measurementOr dered By: Italo Kenney on 12-14-2024 Globulin (S) [Mass/Vol] 3.2 g/dL 2.2-4.2 [facility] Serum glucose measurement (m ass/volume)Ordered By: Italo Kenney on 12-14-2024 Glucose [Mass/Vol] 97 mg/dL 70-99 [facility] Serum or plasma alanine darby otransferase (ALT) measurementOrdered By: [facility] on 12-14-2024 ALT [Catalytic activity/Vol] 19 U/L <47 [facility] Serum or plasma albumin deven urement (mass/volume)Ordered By: Italo Kenney on 12-14-2024 Albumin [Mass/Vol] 4.4 g/dL 3.5-5.0 [facility] Serum or plasma albumin/glob ulin mass ratioOrdered By: [facility] on 12-14-2024 Albumin/Globulin [Mass ratio] 1.4 {ratio} 0.9-2.4 [facility] Serum or plasma alkaline fernando sphatase measurementOrdered By: [facility] ALP [Catalytic activity/Vol] 84 U/L 40-129 [facility] Serum or plasma calcium deven urement (mass/volume)Ordered By: Italo Anne Marie on 12-14-2024 Calcium [Mass/Vol] 9.3 mg/dL 7.6-11.0 [facility] Serum or plasma cholesterol in HDL measurement (mass/volume)Ordered By: Italo Kenney on 12-14-2024 Cholesterol in HDL [Mass/Vol] 47 mg/dL >40 [facility] Comment on above: National Cholesterol Education Program (NCEP) guidelines:<40 mg/dL: Low HDL-cholesterol (major risk factor for CHD)>= 60 mg/dL: High HDL-cholesterol (negative risk factor for CHD)HDL-cholesterol is affected by a number of factors, e.g. smoking, exercise, hormones, sex and age. Serum or plasma cholesterol measurement (mass/volume)Ordered By: Italo Kenney on 12-14-2024 Cholesterol [Mass/Vol] 193 mg/dL <201 [facility] [place] Comment on above: Cholesterol level, D esirable <200 mg/dLBorderline high cholesterol 200-239 mg/dLHigh cholesterol >=240 mg/dLRecommendations of the NCEP Adult Treatment Panel for the following risk-cutoff thresholds for the [place] population. Serum or plasma urea nitroge n measurement (mass/volume)Ordered By: Italo Anne Marie on 12-14-2024 Urea nitrogen [Mass/Vol] 8 mg/dL 4-19 [facility] Sodium levelOrdered By: Victor Manuel Thomaske on 12-14-2024 Sodium [Moles/Vol] 138 mmol/L 133-145 [facility] Total proteinOrdered By: Penny Thomaske on 12-14-2024 Protein [Mass/Vol] 7.6 g/dL 5.9-8.4 [facility] Triglycerides measurementOrd ered By: Italo Thomaske on 12-14-2024 Triglyceride [Mass/Vol] 86 mg/dL <199 [facility] Comment on above: The drugs N-Acetylcy steine and Metamizole may falsely depress this assay. Normal range: <150 mg/dLBorderline High: 150-199 mg/dLHigh: 200-499 mg/dLVery High: >500 mg/dL White blood cell (WBC) count Ordered By: Italo Kenney on 12-14-2024 WBC (Bld) [#/Vol] 4.5 10*3/uL 4.4-11.0 [facility] Absolute lymphocyte countOrd ered By: Kell Lane on 09-22-2022 Lymphocytes Auto (Unsp spec) [#/Vol] 1.87 10*3/uL 0.83-4.51 [facility] Basophil percentageOrdered B y: Kell Lane on 09-22-2022 Basophils/100 WBC (Bld) 1.0 % 0-1 [facility] Bilirubin [Mass/Vol] 0.50 mg/dL 0.20-1.00 [facility] Comment on above: For patients on eltr ombopag therapy, use of Dimension [place] TBIL is not recommended. Chloride [Moles/Vol] 106 mmol/L 98-107 [facility] Eosinophils/100 WBC (Bld) 1.5 % 0-5 [facility] Glucose [Mass/Vol] 94 mg/dL 74-106 [facility] Neutrophils (Bld) [#/Vol] 1.8 10*3/uL 2.0-7.7 [facility] [facility]/100 WBC (Bld) 43.3 % 47-70 [facility] Potassium [Moles/Vol] 3.7 mmol/L 3.5-5.1 [facility] Protein [Mass/Vol] 8.0 g/dL 6.4-8.2 [facility] Sodium [Moles/Vol] 139 mmol/L 136-145 [facility] WBC (Bld) [#/Vol] 4.1 10*3/uL 4.4-11.0 [facility] Blood erythrocytes count (nu mber/volume)Ordered By: Kell Lane on 09-22-2022 RBC (Bld) [#/Vol] 4.61 10*6/uL 4.6-6.2 [facility] Blood hemoglobin measurement (mass/volume)Ordered By: Kell Lane on 09-22-2022 Hemoglobin (Bld) [Mass/Vol] 14.2 g/dL 13.0-16.5 [facility] Blood lymphocytes/100 leukoc ytesOrdered By: Kell Lane on 09-22-2022 Lymphocytes/100 WBC (Bld) 45.9 % 19-41 [facility] Blood monocytes/100 leukocyt esOrdered By: Kell Lane on 09-22-2022 Monocytes/100 WBC (Bld) 8.1 % 0-10 [facility] Blood platelet mean volumeOr dered By: Kell Lane on 09-22-2022 Platelet mean volume (Bld) [Entitic vol] 9.3 fL 6.2-12.0 [facility] Determination of erythrocyte mean corpuscular volume (MCV)Ordered By: Kell Lane on 09-22-2022 MCV (RBC) [Entitic vol] 91.3 fL 80-94 [facility] Hematocrit Auto (Bld) [Volum e fraction]Ordered By: Kell Lane on 09-22-2022 Hematocrit (Bld) [Volume fraction] 42.1 % 40-54 [facility] Laboratory - Chemistry and C hemistry - challengeOrdered By: Kell Lane on 09-22-2022 ALP [Catalytic activity/Vol] 79 U/L 45-117 [facility] ALT [Catalytic activity/Vol] 30 U/L 16-61 [facility] CO2 [Moles/Vol] 28.0 mmol/L 21.0-32.0 [facility] Globulin (S) [Mass/Vol] 3.8 g/dL 2.2-4.2 [facility] Urea nitrogen/Creatinine [Mass ratio] 6.3 mg/mg 10-20 [facility] Laboratory - Hematology and Cell countsOrdered By: Kell Lane on 09-22-2022 Erythrocyte distribution width (RBC) [Entitic vol] 38.2 fL 35.1-43.9 [facility] Erythrocyte distribution width (RBC) [Ratio] 11.4 % 11.6-14.6 [facility] Immature granulocytes/100 WBC (Bld) 0.200 % 0.0-0.9 [facility] Comment on above: IG% - Immature Granu locytes (promyelocytes, myelocytes and metamyelocytes) > 1% indicates that a LEFT SHIFT is Present. MCH (RBC) [Entitic mass] 30.8 pg 27.0-32.0 [facility] Nucleated RBC/100 WBC (Bld) [Ratio] 0 % 0-5 [facility] MCHC Auto (RBC) [Mass/Vol]Or dered By: Kell Lane on 09-22-2022 MCHC (RBC) [Mass/Vol] 33.7 g/dL 32-36 [facility] No Panel InformationOrdered By: Kell Lane on 09-22-2022 Estimated GFR (MDRD) Amer 120 mL/min >60 [facility] Comment on above: GFR Calc Estimated GFR (MDRD) Non-Af Amer 99 mL/min >60 [facility] Comment on above: Non- GFR Calc Thyroid Stimulating Hormone (TSH) 1.17 uIU/mL 0.358-3.74 [facility] Platelets bldOrdered By: Lida Lane on 09-22-2022 Platelets (Bld) [#/Vol] 263 10*3/uL 150-450 [facility] Serum or plasma albumin deven urement (mass/volume)Ordered By: Kell Lane on 09-22-2022 Albumin [Mass/Vol] 4.2 g/dL 3.2-5.0 [facility] Serum or plasma albumin/glob ulin mass ratioOrdered By: Kell Lane on 09-22-2022 Albumin/Globulin [Mass ratio] 1.1 {ratio} 0.9-2.4 [facility] Serum or plasma calcium deven urement (mass/volume)Ordered By: Kell Lane on 09-22-2022 Calcium [Mass/Vol] 9.2 mg/dL 8.5-10.1 [facility] Serum or plasma creatinine m easurement (mass/volume)Ordered By: Kell Lane on 09-22-2022 Creatinine [Mass/Vol] 0.95 mg/dL 0.70-1.30 [facility] Comment on above: The validity of the calculated GFR & GFRAA in patients over 70 years has not been determined. Clinical correlation is essential. Serum or plasma urea nitroge n measurement (mass/volume)Ordered By: Kell Lane on 09-22-2022 Urea nitrogen [Mass/Vol] 6 mg/dL 7-18 [facility] Thin prep Papanicolaou smear with manual screeningOrdered By: Kell Lane on 09-22-2022 Thin prep Papanicolaou smear with manual screening 36 U/L 15-37 [facility] Thin prep Papanicolaou smear with manual screening 5 5-15 [facility] CNOVon 02-19-2021 CN Office Visit (UCWSTR) ALEX ANDERSON ([id number]) 1995 M Date Time Provider Department 02/19/21 5:00 PM MARTINEZ SANABRIA [facility] During your visit today, we recorded the following information about you: Temperature Pulse Respiration Blood pressure 97.7 degrees 75/minute 14/minute 130/96 Weight 76.9 kg Martinez Sanabria APRN.CNP 02/19/2021 5:43 PM Signed ASSESSMENT/PLAN: 1. Irritation of right eye - ICD9: 379.99, ICD10: H57.89 -use medication as prescribed -make appointment with eye doctor for Wednesday for recheck -Worsening symptoms see eye doctor urgently or go to ER. - ERYTHROMYCIN 5 MG/GRAM (0.5 %) EYE OINTMENT Martinez Sanabria APRN.CNP 02/19/2021 6:46 PM Signed Subjective HPI HPI Alex Anderson is a 26 year old male who presents today for CC of right eye irritation. This started today. Has tried nothing for relief. Symptoms are worsened by nothing. 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 Denies uri symptoms. .Patient presents with: Eye Problem Right Eye: x 1:30 today No past medical history on file. No past surgical history on file. ALLERGIES Eggs [Egg], Lactose Intolerance (Lactase) [Lactase], and Seasonal Allergies MEDICATIONS erythromycin ophthalmic ointment Use 1 application in the right eye three times daily. No family history on file. Social History Tobacco Use - Smoking status: Never Smoker - Smokeless tobacco: Never Used Substance Use Topics - Alcohol use: Not on file - Drug use: Not on file ROS Objective Blood pressure 130/96, pulse 75, temperature 36.5 ?C (97.7 ?F), resp. rate 14, weight 76.9 kg (169 lb 9.6 oz), SpO2 100 %. Physical Exam Constitutional: General: He is not in acute distress. Appearance: He is not toxic-appearing or diaphoretic. HENT: Head: Normocephalic and atraumatic. Eyes: Pulmonary: Effort: Pulmonary effort is normal. No accessory muscle usage or respiratory distress. Neurological: Mental Status: He is alert and oriented to person, place, and time. ASSESSMENT/PLAN: 1. Irritation of right eye - ICD9: 379.99, ICD10: H57.89 -use medication as prescribed -make appointment with eye doctor for Wednesday for recheck -Worsening symptoms see eye doctor urgently or go to ER. - ERYTHROMYCIN 5 MG/GRAM (0.5 %) EYE OINTMENT Agrees to plan Martinez Sanabria APRN.CNP Referring Provider: SELF [[id number]] Allergies As of Date: 02/19/2021 Noted Allergy Reaction EGGS (EGG) 02/19/2021 8 - GI Upset LACTOSE INTOLERANCE (LACTASE) (LA*02/19/2021 8 - GI Upset SEASONAL ALLERGIES 02/19/2021 5 - Intolerance Date Reviewed: 02/19/2021 Reviewed by: Idania Batista MA - Fully Assessed Reason for Visit: Eye Problem Right Eye [2876] Cmt: x 1:30 today Primary Visit Diagnosis:Irritat ion of right eye [H57.89] Order(s):erythrom ycin ophthalmic ointmentUse 1 application in the right eye three times daily.Disp: 3.5 gRfl: 0 Prescriptions as of 02/19/2021 - erythromycin ophthalmic ointment Use 1 application in the right eye three times daily. Problem List As Of Date: 02/19/2021 (None) Other instructions from your clinician: ASSESSMENT/PLAN: 1. Irritation of right eye - ICD9: 379.99, ICD10: H57.89 -use medication as prescribed -make appointment with eye doctor for Wednesday for recheck -Worsening symptoms see eye doctor urgently or go to ER. - ERYTHROMYCIN 5 MG/GRAM (0.5 %) EYE OINTMENT Prescriptions ordered this encounter Disp Refills Start End ERYTHROMYCIN 5 MG/GRAM (0.5 %) EYE O* 3.5 g 0 02/19/2021 Route: RIGHT EYE Sig: Use 1 application in the right eye three times daily. Encounter Status:Closed by MARTINEZ SANABRIA on 02/19/21 Normal [facility] GLUCOSEon 09-02-2019 Glucose [Mass/Vol] 89 mg/dL Normal 65-99 [facility] Comment on above: Result Comment: Fasting reference interval Performed By: #### 7 600, 483 #### [facility]-[address], [address] [place] [id number] [employer]: Samir Goldman MD LIPID PANEL, STANDARDon Cholesterol [Mass/Vol] 173 mg/dL Normal <200 [facility] Comment on above: Performed By: #### 7 600, 483 #### [facility]-[address], [address] [place] [id number] [employer]: Samir Goldman MD Cholesterol in HDL [Mass/Vol] 49 mg/dL Normal > OR = 40 [facility] Comment on above: Performed By: #### 7 600, 483 #### [facility]-[address], [address] [place] [address] [employer]: Samir Goldman MD Cholesterol in LDL [Mass/Vol] 110 mg/dL (calc) High [facility] Comment on above: Result Comment: Refe rence range: <100 Desirable range <100 mg/dL for primary prevention; <70 mg/dL for patients with CHD or diabetic patients with > or = 2 CHD risk factors. LDL-C is now calculated using the Anthony calculation, which is a validated novel method providing better accuracy than the Friedewald equation in the estimation of LDL-C. Michael RAMIREZ et al. MARY. 2013;310(19): 0401-6737 (http://education.[employer].Birchbox/faq/TRX384) Performed By: #### 7 600, 483 #### [facility], [address] [place] [address] [employer]: Samir Goldman MD Cholesterol.total/Cholest eladio in HDL [Mass ratio] 3.5 (calc) Normal <5.0 [facility] Comment on above: Performed By: #### 7 600, 483 #### [facility]-[address], [address] [place] [address] [employer]: Samir oGldman MD NON HDL CHOLESTEROL 124 mg/dL (calc) Normal <130 [facility] Comment on above: Result Comment: For patients with diabetes plus 1 major ASCVD risk factor, treating to a non-HDL-C goal of <100 mg/dL (LDL-C of <70 mg/dL) is considered a therapeutic option. Performed By: #### 7 600, 483 #### [facility], [address] [place] [address] [employer]: Samir Goldman MD Triglyceride [Mass/Vol] 47 mg/dL Normal <150 [facility] Comment on above: Performed By: #### 7 600, 483 #### [facility], [address] [place] [address] [employer]: Samir Goldman MD EMERGENCY REPORTon 9 EMERGENCY REPORT [facility] EMERGENCY ROOM REPORT NAME ACCOUNT SEX AGE ADMIT DISCHARGE PT MED. RECORD# NUMBER DATE DATE TYPE ALEX ANDERSON [id number] Holly 24 02/02/19 02/02/19 3 [id number] ROOM: ER DATE OF : 1995 DICTATING PHYSICIAN: Isra Tariq CHIEF COMPLAINT: Left leg laceration. HISTORY OF PRESENT ILLNESS: The patient was changing a blade on an electric saw at work. In the process, the blade coiled and came across his right lower leg sustaining a laceration. It was not on the machine at the time, but was new a sharp blade. He had a deep laceration to the left lower leg over the anterolateral littlejohn area. There was moderate bleeding initially, no other injuries or complaints. His last tetanus shot has been just within the last week as he was seen recently for a dog bite and is on antibiotics for that. PAST MEDICAL HISTORY: Negative for any other medical problems. MEDICATIONS: No medications regularly. ALLERGIES: No allergies. SOCIAL HISTORY: This did occur at work. He does not smoke or drink alcohol. PHYSICAL EXAMINATION: The patient is a 24-year-old generally well nourished, developed male who is alert and appropriate. He does not appear toxic or in acute distress. His skin is pink, warm and dry. Vital signs: Temperature 99.6, pulse 106, respirations 16, blood pressure 146/93. Exam is focused to the left lower extremity. The patient has a 6.5 cm deep gaping laceration over the dorsomedial aspect of the left lower leg. It is well above the ankle. The edges are quite gaping. It appears generally clean. There is some slight oozing, no marked bleeding. He is able to move his foot and toes well. He has no numbness or tingling to the area. No other injuries or complaints. PROCEDURE NOTE: The laceration is anesthetized with 1% lidocaine with epinephrine and Bupivacaine. It is explored. There is very minimal amount of some debris that appears to be material, but no obvious dirt or wood, etc. It is irrigated copiously with saline, cleansed with Hibiclens and some light debridement is done. It is irrigated again with saline and explored. It extends down just to nearly the periosteum of the bone, but does not involve the periosteum or bone. There does not appear to be any deep structures such as tendons or muscle tissue. It is irrigated again with saline and then layered closure with 3-0 Vicryl and 3-0 and 4-0 Ethilon is done. He had good wound closure. Hemostasis was maintained. Page 1 of 2 ALEX ANDERSON Emergency Room Report EMERGENCY DEPARTMENT COURSE AND TREATMENT: I did dispense crutches for him to use to limit weightbearing because it was such a deep laceration and recommended limited full weight and weightbearing at least for the next several days. Keep the leg elevated. He is on antibiotics, which is he is to continue. He was given some [place] if needed for pain. I recommended he follow up with occupational medicine within the next several days for recheck before proceeding back to work. DIAGNOSIS: 6.5 cm left leg laceration with layered closure. Dictated By: Isra Tariq MD 02/02/19 16:28 JOB #: [id number] Transcribed By: wallace 02/02/19 17:34 Electronically signed by: STEPHANIE Tariq M.D. 02/09/19 19:18 Page 2 of 2 ALEX ANDERSON Emergency Room Report Normal [facility] Vital Signs Date Time Vital Sign Value Performing Clinician Heleni nikki 06-11-2023 16:28-0500 Body height 182.88 cm [facility] 06-11-2023 16:28-0500 Body mass index (BMI) [Ratio] 44.1 kg/m2 [facility] 06-11-2023 16:28-0500 Body temperature 98.3 [degF] [facility] 06-11-2023 16:28-0500 Body weight 147.9 kg [facility] 06-11-2023 16:28-0500 Diastolic blood pressure 97 mm[Hg] [facility] 06-11-2023 16:28-0500 Heart rate 98 /min [facility] 06-11-2023 16:28-0500 Respiratory rate 14 /min [facility] 06-11-2023 16:28-0500 SaO2% (BldA) [Mass fraction] 99 % [facility] 06-11-2023 16:28-0500 Systolic blood pressure 148 mm[Hg] [facility] Encounters Encounter Date Encounter Type Care Provider Facility Start: 12-14-2024 End: 12-14-2024 ambulatory Italo Kenney MD Work Phone: -[facility] Start: 12-14-2024 End: 12-14-[address] Italo Kenney MD -[facility] Work Phone: Start: 12-14-2024 End: 12-14-2024 ambulatory Italo Kenney Facility:[facility] Start: 06-11-2023 End: 06-11-2023 Emergency department patient visit [facility]-Emergency Department Work Phone: Start: 02-24-2023 End: 02-24-2023 ambulatory [facility] Work Phone: Start: 02-24-2023 End: 02-24-2023 Patient encounter procedure [facility]-Radiology, [facility] Work Phone: Start: 09-25-2022 End: 09-25-2022 ambulatory [facility] Work Phone: Start: 09-25-2022 End: 09-25-2022 Patient encounter procedure [facility]-Ultrasound, [facility] Start: 09-22-2022 End: 09-22-2022 ambulatory [facility] Work Phone: Start: 09-22-2022 End: 09-22-2022 Patient encounter procedure [facility]-Laboratory, [place] Start: 02-15-2019 End: 02-15-2019 Patient encounter procedure FÉLIX GIMENEZ [facility] Start: 02-08-2019 End: 02-08-2019 Patient encounter procedure FÉLIX BEARD [facility] Start: 02-02-2019 End: 02-02-2019 Emergency department patient visit NIDIA BUCIO [facility] Start: 01-29-2019 End: 01-29-2019 Emergency department patient visit JAYJAY GRAY [facility] Procedures Date Procedure Procedure Detail Performing Clinician Start: 02-24-2023 Diagnostic radiograp hy of abdomen, decubitus and erect Start: 09-25-2022 US scan of thyroid Plan of Treatment Date Care Activity Detail Author Start: 06-11-2023 [facility] Patient Education ED Laceration, Hand: All Closures [facility] Work Phone: Patient referral [facility] Work Phone: Payers Date Payer Category Payer Private Health Insurance [id number] 2024 Self-pay [id number] 1995 Unknown [id number] [id number] [id number] 1995 Unknown [id number] [id number] [id number] 1995 Unknown [id number] [id number] [id number] 1995 Unknown [id number] [id number] [id number] Unknown [id number] Unknown [id number] Worker's Compensation [id number] Social History Date Type Detail Facility Start: 07-10-2020 End: 06-11-2023 Tobacco smoking status NHIS Unknown if ever smoked [facility] Start: 07-10-[address] [facility] Start: 1995 Sex Assigned At Male [facility] Start: 06-11-2023 Tobacco smoking stat us MOIS Never smoked tobacco (finding) [facility] Progress note 02-19-2021 Note Date & Type Note Facility 02-19-2021 Note HNO ID: [id number] Author: Martinez Sanabria APRN.[employer]GEMENT [employer] OPERATOR Service: ? Author Type: Nurse Practitioner Type: Progress Notes Filed: 02/19/2021 6:46 PM Note Text: Subjective HPI HPI Alex Anderson is a 26 year old male who presents today for CC of right eye irritation. This started today. Has tried nothing for relief. Symptoms are worsened by nothing. 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 Denies uri symptoms. .Patient presents with: Eye Problem Right Eye: x 1:30 today No past medical history on file. No past surgical history on file. ALLERGIES Eggs [Egg], Lactose Intolerance (Lactase) [Lactase], and Seasonal Allergies MEDICATIONS erythromycin ophthalmic ointment Use 1 application in the right eye three times daily. No family history on file. Social History Tobacco Use - Smoking status: Never Smoker - Smokeless tobacco: Never Used Substance Use Topics - Alcohol use: Not on file - Drug use: Not on file ROS Objective Blood pressure 130/96, pulse 75, temperature 36.5 ?C (97.7 ?F), resp. rate 14, weight 76.9 kg (169 lb 9.6 oz), SpO2 100 %. Physical Exam Constitutional: General: He is not in acute distress. Appearance: He is not toxic-appearing or diaphoretic. HENT: Head: Normocephalic and atraumatic. Eyes: Pulmonary: Effort: Pulmonary effort is normal. No accessory muscle usage or respiratory distress. Neurological: Mental Status: He is alert and oriented to person, place, and time. ASSESSMENT/PLAN: 1. Irritation of right eye - ICD9: 379.99, ICD10: H57.89 -use medication as prescribed -make appointment with eye doctor for Wednesday for recheck -Worsening symptoms see eye doctor urgently or go to ER. - ERYTHROMYCIN 5 MG/GRAM (0.5 %) EYE OINTMENT Agrees to plan Martinez Sanabria APRN.BERNARDO [facility] Evaluation note Note Date & Type Note Facility Evaluation note No assessment information availa ble [facility] Work Phone: Reason for referral (narrative) Note Date & Type Note Facility Reason for referral (narrative) No reason for referral information available [facility] Work Phone: Summary Purpose Family History No Family History Records FoundNo Family History Records FoundNo Family History Records FoundNo Family History Records Found Advance Directives No Advanced Directives Records Found Advance Directive Response Recorded Date/ Time Living Will No July 10 4:57pm Power of Heel Wheeler No July 10, 2020 4:57pm Advance Directive Response Recorded Date/ Time Living Will No June 11, 023 4:41pm Power of Heel Wheeler No June 11, 2023 4:41pm Chief Complaint and Reason for Visit Chief Complaint NONTOXIC SINGLE THYR OID NODULE Chief Complaint ABD XRAY Chief Complaint ABD XRAY LAC Additional Source Comments (unrecognized sect ion and content) No Status Records FoundNo Status Records FoundNo Status Records FoundNo Status Records Found INFORMATION SOURCE (unrecogn ized section and content) DATE CREATED AUTHOR 02/25/2019 Luis Daniel Graham [facility] DATE CREATED AUTHOR AUTHOR'S ORGANIZ ATION 09/02/2019 [facility] DATE CREATED AUTHOR AUTHOR'S ORGANIZ ATION 02/21/2021 [facility] DATE CREATED AUTHOR AUTHOR'S ORGANIZ ATION 12/23/2024 [facility] Care Teams (unrecognized sec tion and content) Team Status: Active Member Role Status Dates Kell Lnae , Primary Care Provider Active Team Status: Inactive Member Role Status Dates Kell Lane , DO Primary Care Provi sonny, Attending Provider, Referring Provider Active Team Status: Active Member Role Status Dates Kell Lane , Primary Care Provider, Attending Provider Active Team Status: Inactive Member Role Status Dates Kell Lane , Primary Care Provider, Attending Provider Active Team Status: Inactive Member Role Status Dates Kell Lane DO Primary Care Provider Active Dr. Gary Bahena MD Attending Provider, Referring Provider Active Team Status: Inactive Member Role Status Dates Kell Lane DO Primary Care Provider Active Dr. Liseth Stover , Emergency Provider Active Team Status: Active Member Role/Relationship Status Dates Italo Kenney MD Primary Care Provider Active Team Status: Inactive Member Role/Relationship Status Dates Italo Kenney MD Primary Care Provider Active St art: December 14, 2024 End: December 14, 2024 Italo Kenney MD Attending Provider Active Start : December 14, 2024 End: December 14, 2024 Italo Kenney MD Referring Provider Active Start : December 14, 2024 End: December 14, 2024 Goals (unrecognized section and content) Goals may be documented in a n alternate sectionGoals may be documented in an alternate sectionGoals may be documented in an alternate sectionGoals may be documented in an alternate sectionGoals may be documented in an alternate section FOR RECORDS PERTAINING TO PATIENTS WHO ARE OR HAVE BEEN ENROLLED IN A CHEMICAL DEPENDENCY/SUBSTANCEABUSE PROGRAM, SOME INFORMATION MAY BE OMITTED. This clinical summary was aggregated from multiple sources. Caution should be exercised in using it in the provision of clinical care. This summary normalizes information from multiple sources, and as a consequence, information in this document may materially change the coding, format and clinical context of patient data. In addition, data may be omitted in some cases. CLINICAL DECISIONS SHOULD BE BASED ON THE PRIMARY CLINICAL RECORDS. [facility] [employer] [facility]. provides no warranty or guarantee of the accuracy or completeness of information in this document.
[2025-03-17 18:55] LABS: Hematocrit 40.0 % (40-54); Hemoglobin 14.0 g/dL (13.0-16.5); Immature Granulocytes Count 0.010 X10^3/uL (0.0-0.0); Mean Corp Hgb Conc 35.0 g/dL (32-36); Mean Corpuscular Volume 87.7 fL (80-94); Mean Platelet Vol. 9.2 fl (6.2-12.0); NRBC Flagged by Analyzer 0 % (0-5); Platelet Count 230 K/mm3 (150-450); RBC Distribution Width CV 11.5 % (11.6-14.6); RBC Distribution Width SD 36.8 fl (35.1-43.9); Red Blood Count 4.56 M/mm3 (4.6-6.2); White Blood Count 5.7 K/mm3 (4.4-11.0)
[2025-03-17 19:18] LABS: Anion Gap 11 (5-15); BUN 10 mg/dL (4-19); BUN/Creat Ratio 9.3 RATIO (10-20); Calcium,Total 9.7 mg/dL (7.6-11.0); Carbon Dioxide 24.0 mmol/L (21.0-32.0); Chloride 104 mmol/L (98-108); Estimated Creatinine Clearance 103.93 ml/min (50-250); Glucose 86 mg/dL (70-99); Potassium 3.8 mmol/L (3.3-5.1); Troponin T High Sensitivity < 6 ng/L (<=22)
[2025-03-17 20:28] VITALS: BP 150/94; PULSE 70; RESP 16; O2SAT 100
[2025-03-17 21:00] LABS: Troponin T High Sens 2 HR 7 ng/L (<=22)
[2025-03-17 22:00] VITALS: BP 146/92; PULSE 58; RESP 16; O2SAT 97
[2025-03-17 22:25] VITALS: BP 146/92; PULSE 58; RESP 16; TEMP 36.6; O2SAT 97
--- NOTE | 2025-03-17 22:25 | EX.ED.DYSGE1 ---
HPI History of Present Illness Chief Complaint: Shortness of Breath Detail of Chief Complaint: Chest pain, shortness of breath and right forearm pain and tingling Informant: patient and spouse/S.O. Onset/Context/Timing Onset: Today (Today he developed chest discomfort with some shortness of breath.) and Yesterday (Yesterday patient had pain and tingling right forearm. He also had several episodes of chest discomfort) Context: Sudden Onset Timing: Intermittent and Lasts (Less than 15 minutes) Quality: Pain Location: Right upper extremity and chest Current Severity: Gone Maximum Severity: Moderate Worsened by: Nothing Relieved by: Nothing Associated Symptoms Associated Symptoms: No nausea, vomiting or diaphoresis Narrative Narrative: Patient is a 30-year-old male. He has no significant past medical history. He denies history of VTE. He has no risk factors for VTE. He denies leg pain, swelling discoloration. He denies history of cardiac disease and has no risk factor for cardiac disease. He has no history of hiatal hernia, reflux or peptic ulcer disease. He denies black or maroon-colored stool. He does have history of hypertension. Patient denies any recent upper respiratory tract infectious symptoms. Patient denies nausea, vomiting or diarrhea. Prior similar symptoms: Yes (Intermittently over the past month or so did not seek medical treatment.) Recent Illness/Hospitalization: No PFSH PFS Medical History HTN (hypertension) Anxiety Home Medications ?Medication ?Instructions ?Recorded ?Last Taken ?Type NK 06/11/23 Unknown History Allergy/AdvReac Type Severity Reaction Status Date / Time egg AdvReac Vomiting Verified 03/17/25 18:15 lactose AdvReac Upset Verified 03/17/25 18:15 Stomach Social History Smoking Status: Current every day smoker tobacco type: e-cigarettes ROS ROS ED Constitutional Constitutional ED: Denies chills, fever(s), subjective, sweats or weight loss Eyes Eyes: Denies blurry vision, change in vision or diplopia ENT ENT ED: Denies ear pain, rhinorrhea or sore throat Cardiovascular Cardiovascular: Reports chest pain; Denies orthopnea, palpitations, paroxysmal nocturnal dyspnea or racing heartbeat Respiratory/Chest Respiratory/Chest: Reports cough and dyspnea; Denies dyspnea on exertion, orthopnea or paroxysmal nocturnal dyspnea Gastrointestinal Gastrointestinal: Denies abdominal pain, constipation, diarrhea, melena, nausea or vomiting Genitourinary Genitourinary ED: Denies dysuria, hematuria or urinary frequency Musculoskeletal Musculoskeletal: Denies back pain Integumentary Denies rash Neurologic Neurologic: Denies headache(s), paresthesias or weakness Psychiatric Psychiatric: Reports anxiety Endocrine Endocrinology: Denies cold intolerance or heat intolerance Hematologic/Lymphatic Hematologic/Lymphatic: Reports systems reviewed and no addt'l complaints, except as documented EXAM Physical Exam Const Vital Signs: 03/17/25 18:11 03/17/25 18:34 03/17/25 18:34 Temperature 98.0 F Temperature Source Oral Pulse Rate 75 Respiratory Rate 16 Respiratory Effort Normal Non-Labored Respiratory Depth Normal Respiratory Pattern Normal Blood Pressure 159/109 H Blood Pressure Mean 125 Pulse Ox 100 100 Oxygen Delivery Method Room Air Room Air Room Air 03/17/25 20:28 03/17/25 22:00 03/17/25 22:25 Temperature 97.9 F Temperature Source Pulse Rate 70 58 L 58 L Respiratory Rate 16 16 16 Respiratory Effort Respiratory Depth Respiratory Pattern Blood Pressure 150/94 H 146/92 H 146/92 H Blood Pressure Mean 112 110 110 Pulse Ox 100 97 97 Oxygen Delivery Method Room Air Room Air Positive well nourished and well developed Constitutional Narrative: Patient had numerous elevated blood pressure readings. He has no history of blood pressure or his report. He is on no antihypertensive meds. General Appearance ED: well developed and NAD; Negative for cyanotic, diaphoretic or pallor HEENT Reports moist mucous membranes HEENT Narrative: Head is atraumatic and normocephalic. Ears normal. Nares patent. Posterior pharynx is normal. Eyes PERRL and EOMs intact bilaterally General Eye ED: Negative for pale conjunctiva or scleral icterus Neck no lymphadenopathy, supple and no JVD Resp normal respiratory effort and clear to auscultation bilaterally Cardio regular rate, regular rhythm, S1 normal heart sound, S2 normal heart sound and no murmurs GI normal to inspection, nondistended, normoactive bowel sounds, non-tender, non-distended and no masses; Negative for hepatosplenomegaly Back/Spine no CVA tenderness Extremity normal to inspection Extremity Narrative: There is no asymmetry, swelling, discoloration, leg vein distention, palpable cords or tenderness along the distribution of the deep venous system. Neuro oriented x3, CN's II-XII intact bilaterally and no sensory deficits noted Sensorium / Orientation: alert Motor Exam: strength 5/5 throughout Psych mental status grossly normal Skin no rashes or lesions noted, no wounds and skin turgor normal General Skin Exam: elasticity normal; Negative for jaundice or pallor MDM MDM MDM Narrative Medical decision making narrative: Differential diagnosis is cardiac versus noncardiac noncardiac would include PE, pneumonia, pneumothorax, peptic ulcer disease, anxiety. Patient does admit to anxiety. EKG, chest x-ray appropriate blood work was obtained. Lab Data Attestation: I reviewed the patient's lab results. Lab results narrative: CBC is unremarkable. He does have a slight lymphocytosis. Basic metabolic panel is normal. 1st and 2nd troponin are both normal. Delta is normal. Labs: Laboratory Results - last 24 hr 03/17/25 03/17/25 16:39 20:33 WBC 5.7 RBC 4.56 L Hgb 14.0 Hct 40.0 MCV 87.7 MCH 30.7 MCHC 35.0 RDW Std Deviation 36.8 RDW Coeff of Rachna 11.5 L Plt Count 230 MPV 9.2 Immature Gran % (Auto) 0.200 Neut % (Auto) 41.1 L Lymph % (Auto) 46.7 H [place] % (Auto) 9.5 Eos % (Auto) 1.6 Baso % (Auto) 0.9 Absolute Neuts (auto) 2.4 Absolute Lymphs (auto) 2.66 Nucleated RBC % 0 Sodium 138 Potassium 3.8 Chloride 104 Carbon Dioxide 24.0 Anion Gap 11 BUN 10 Creatinine 1.12 Estim Creat Clear Calc 103.93 Est GFR (MDRD) Non-Af 90 BUN/Creatinine Ratio 9.3 L Glucose 86 Calcium 9.7 Troponin T High Sens < 6 Troponin T Hi Sens 2 Hr 7 Radiography Chest X-Ray - ED: Read by ED Physician (Chest x-rays independent reviewed interpreted by me as negative. Cardiac silhouette size normal. Lung parenchyma normal. There is no effusion. Osseous structures are unremarkable. [place] is not widened.) Diagnostic Testing: Clinical Impression(s) from Imaging Studies Chest X-Ray 03/17/25 18:34 IMPRESSION: No radiographic evidence of an acute abnormality in the chest. Findings discussed above in detail. Reading Location: [facility] EKG Initial EKG: Attestation: I personally reviewed and interpreted this EKG as follows: Interpretation: Sinus Rhythm (Rate is 73. The EKG is normal. CO interval is under 72 ms. QRS duration 90 ms. QT duration [place] 78 ms. [place] is normal) Differential Diagnosis Chest pain/SOB: pulmonary embolism Reason(s) PE less likely: Positive for PERC negative, Well's <3, not tachycardic and not hypoxic, ACS ACS: Positive for no evidence of ACS based on cardiac biomarkers, EKG without ischemia and history not suggestive of ischemia pain, pneumothorax Reason(s) pneumothorax less likely: Positive for bilateral breath sounds and [employer] withhout PTX, pneumonia Reason(s) pneumonia less likely: Positive for no infiltrate on CXR, no elevation in WBC count, no noted fever and symptoms not consistent with acute infection and aortic dissection Reason(s) Aortic dissection less likely:: Positive for normal vascular exam, no history of HTN, normal neurological exam, no significant risk factors for dissection, no widened mediastinum on CXR, pain not sudden onset, no ripping/tearing pain, no pain to back and blood pressure appropriate in ED Treatment and Re-Evaluation :: Patient and were informed of results. Was informed uncertain what the cause of his pain is. I stated this could be anxiety. The truthful answer is I do not know the cause. Discharge Plan Triage Chief Complaint: Shortness of Breath ED Provider: Valente Ybarra Dx/Rx/DC Orders Clinical Impression: Chest pain, non-cardiac, Elevated blood-pressure reading without diagnosis of hypertension Instructions: ED Chest Pain, Noncardiac, ED Hypertension, To Be Confirmed Prescriptions: No Action NK Primary Care Provider: Italo Kenney Referrals: Italo Kenney MD [Primary Care Provider, Family Practice] - 1 Week Print Language: Lithuanian Disposition Disposition: Home, Self Care
== END 2025-03-17 22:31 | disposition home or self-care (01) ==
PROVIDERS: Emergency Provider Emergency Medicine; PCP Family Medicine; Visit Provider Emergency Medicine
DX: R07.89 Other chest pain (principal); R03.0 Elevated blood-pressure reading, without diagnosis of hypertension; R06.02 Shortness of breath; M79.631 Pain in right forearm; F17.290 Nicotine dependence, other tobacco product, uncomplicated; R05.9 Cough, unspecified
CPT/HCPCS: 71045; 80048; 84484; 85025; 93005; 99284; A4216